=== PATIENT | male | born 1955 | race Caucasian/White ===

== ENCOUNTER 2017-06-30 12:31 | Emergency (ER) | payer MEDICARE, OTHER ==
[~2017-06-30] VITALS: Ht 190.5 cm; Wt 125.0 kg
[2017-06-30] MEDS ORDERED: CLAR10CA3 PO (12:52)
[2017-06-30] MEDS ORDERED: AMBI10TA PO (12:54)
[2017-06-30] MEDS ORDERED: ALBU17IN2 INH (12:54)
[2017-06-30 13:54] LABS: INR 0.95
[2017-06-30 13:57] LABS: BASO # 0.1 K/mm3 (0.0-0.2); BASO % 1.3 % (0.0-1.0); EOS % 0.4 % (0.0-3.0); LARGE UNSTAINED CELL # 0.5 K/mm3 (0.0-0.4); LARGE UNSTAINED CELL % 6.6 % (0.0-4.0); LYMPH # 2.8 K/mm3 (1.5-4.5); LYMPH % 31.3 % (24.0-44.0); MEAN CORPUSCULAR HEMOGLOBIN 29.2 pg (27.0-33.0); MEAN CORPUSCULAR HGB CONC 34.1 g/dl (32.0-36.5); MEAN CORPUSCULAR VOLUME 85.7 fl (80.0-96.0); MONO # 0.6 K/mm3 (0.0-0.8); MONO % 8.4 % (0.0-5.0); NEUTROPHILS # 3.8 K/mm3 (1.8-7.7); NEUTROPHILS % 52.1 % (36.0-66.0); WHITE BLOOD COUNT 7.3 K/mm3 (4.0-10.0)
[2017-06-30 14:15] LABS: MAGNESIUM LEVEL 2.4 MG/DL (1.8-2.4)
[2017-06-30 14:19] LABS: ALBUMIN 3.7 GM/DL (3.2-5.2); ALKALINE PHOSPHATASE 105 U/L (45-117); ALT/SGPT 90 U/L (12-78); ANION GAP 7 MEQ/L (8-16); AST/SGOT 49 U/L (15-37); BILIRUBIN,DIRECT 0.3 MG/DL (0.0-0.2); BILIRUBIN,TOTAL 0.9 MG/DL (0.2-1.0); BLOOD UREA NITROGEN 10 MG/DL (7-18); CALCIUM LEVEL 9.4 MG/DL (8.5-10.1); CARBON DIOXIDE LEVEL 29 MEQ/L (21-32); CHLORIDE LEVEL 106 MEQ/L (98-107); CREATININE FOR GFR 1.15 MG/DL (0.70-1.30); FREE T4 1.21 NG/DL (0.76-1.46); GLOMERULAR FILTRATION RATE > 60.0 (>56); GLUCOSE, FASTING 101 MG/DL (70-105); POTASSIUM SERUM 4.7 MEQ/L (3.5-5.1); SODIUM LEVEL 142 MEQ/L (136-145); TOTAL PROTEIN 7.4 GM/DL (6.4-8.2)
[2017-06-30] MEDS ORDERED: ACETAMINOPHEN 325 MG TAB As Ordered ONE (14:29)
[2017-06-30] MEDS ORDERED: ACETAMINOPHEN TAB 650MG DOSE (2X325MG) PO ONE (14:30)
[2017-06-30 14:47] LABS: PLATELET COUNT, AUTOMATED 82 k/mm3 (150-450)
--- NOTE | 2017-06-30 14:48 | REP ---
Chest one-view HISTORY: Palpitations Comparison: 12/24/2013 The lungs are clear. The heart is normal in size. The pulmonary vasculature is normal in appearance. Impression: No acute disease. Signed by Francisco Javier Chahal MD 06/30/2017 02:40 P
[2017-06-30] MEDS ORDERED: ISOVUE-370 76% 100ML VIAL (Q9967) As Ordered ONE (15:30)
--- NOTE | 2017-06-30 16:10 | REP ---
CT of the chest with IV contrast, pulmonary CT angiography: Opacification of the pulmonary arteries is suboptimal. No large emboli are identified in the pulmonary trunk or central pulmonary arteries. No emboli are identified in the lobe or segment branches. There are no infiltrates or effusions. There is dependent atelectasis. There are no masses. The thoracic aorta is unremarkable. Cardiac size is normal. There is no pericardial effusion. The visualized upper abdominal contents are unremarkable except for hepato steatosis and a right renal upper pole cyst. Impression: The pulmonary arteries are suboptimally opacified. No pulmonary emboli are identified. There is dependent atelectasis. Otherwise, essentially negative CT study of the chest. Signed by Roman Mancia MD 06/30/2017 04:02 P
[2017-06-30 16:47] VITALS: BP 171/90
--- NOTE | 2017-07-01 20:10 | ECGEPIP ---
Stationary ECG Study [facility] - ED Test Date: 2017-06-30 Pat Name: YESSICA GODOY Department: Room: - Gender: M Site Manager: MARCIANO : 1955 Requested By: ASIM Beavers Order Number: [id number] Reading MD: Hector Smallwood Measurements Intervals [place] Rate: 93 P: 51 [place]: 172 QRS: 1 QRSD: 99 T: 62 QT: 363 QTc: 453 Interpretive Statements SINUS RHYTHM WITH FREQUENT VENTRICULAR PREMATURE COMPLEXES POSSIBLE LEFT ATRIAL ENLARGEMENT ABNORMAL RHYTHM ECG CW 12/24/13 RATE INCREASED INCREASED ECTOPY Electronically Signed On 07-01-2017 20:09:49 EDT by Hector Smallwood
== END 2017-06-30 16:53 | disposition home or self-care (01) ==
LOC: M ED 12:31
DX: J32.9 Chronic sinusitis, unspecified (principal); I49.3 Ventricular premature depolarization; R94.31 Abnormal electrocardiogram [ECG] [EKG]; G47.30 Sleep apnea, unspecified; K22.70 Barrett's esophagus without dysplasia; F17.200 Nicotine dependence, unspecified, uncomplicated; Z79.899 Other long term (current) drug therapy
CPT/HCPCS: 71010; 71275; 80048; 80076; 82550; 82553; 83735; 83880; 84100; 84439; 84443; 84484; 85025; 85610; 85730; 93005; 93041; 94760; 99285; Q9967

== ENCOUNTER → 2018-10-08 | Outpatient (CLI) | payer OTHER | LOC: M CARPUL 11:25 | DX: R94.31 Abnormal electrocardiogram [ECG] [EKG] (principal) | CPT/HCPCS: 93306 ==

== ENCOUNTER 2019-04-23 19:38 | Inpatient (IN) | payer OTHER ==
[~2019-04-23] VITALS: Ht 190.5 cm; Wt 121.5 kg
[~2019-04-23 19:38] MED LIST: ALBU17IN2 INH; AMBI10TA PO; CLAR10CA3 PO
[2019-04-23] MEDS ORDERED: NS 1,000 ML IV ONE (20:30)
[2019-04-23 20:33] LABS: BASO # 0.1 10^3/uL (0.0-0.2); BASO % 0.8 % (0.0-1.0); EOS # 0.1 10^3/uL (0.0-0.50); EOS % 0.8 % (0.0-3.0); HEMATOCRIT 49.7 % (42.0-52.0); HEMOGLOBIN 16.5 g/dl (13.5-17.5); LYMPH # 2.4 10^3/uL (1.5-4.5); LYMPH % 21.8 % (24.0-44.0); MEAN CORPUSCULAR HEMOGLOBIN 29.6 pg (27.0-33.0); MEAN CORPUSCULAR HGB CONC 33.2 g/dl (32.0-36.5); MEAN CORPUSCULAR VOLUME 89.2 fl (80.0-96.0); MONO # 0.7 10^3/uL (0.0-0.8); MONO % 6.4 % (0.0-5.0); NEUTROPHILS # 7.5 10^3/uL (1.8-7.7); NEUTROPHILS % 69.7 % (36.0-66.0); PLATELET COUNT, AUTOMATED 168 10^3/uL (150-450); RED BLOOD COUNT 5.57 10^6/uL (4.30-6.10); WHITE BLOOD COUNT 10.8 10^3/uL (4.0-10.0)
[2019-04-23 20:47] LABS: CPK CREATINE PHOSPHOKINASE 302 U/L (39-308); ETHYL ALCOHOL (ETHANOL) < 0.003 % (0.000-0.010); MB/CK RELATIVE INDEX 0.76 (< OR =4); TROPONIN I 0.03 NG/ML (< 0.10)
[2019-04-23] MEDS ORDERED: ISOVUE-370 76% 100ML VIAL (Q9967) As Ordered ONE (20:47)
--- NOTE | 2019-04-23 21:03 | REP ---
Clinical: Syncope/near syncope . Comparison: 06/30/2017 . Findings: The mediastinum and cardiac silhouette are stable and within normal limits for portable technique. The lung hyde are clear without acute consolidation, effusion, or pneumothorax. Skeletal structures are intact. Impression: No acute cardiopulmonary process appreciated. Electronically Signed by Norberto Dickinson MD 04/23/2019 08:53 P
--- NOTE | 2019-04-23 21:04 | REP ---
Clinical: Syncope . Findings: Age-related atrophy and microvascular ischemic changes are appreciated. The ventricles and sulci are symmetric. Cervantes-white differentiation is maintained. There is no evidence for acute intracranial hemorrhage, mass/mass effect, pathology or infarction. No extra-axial fluid collection. Calvarium is intact. Paranasal sinuses and mastoid air cells are clear. Impression: Age related atrophy and microvascular ischemic changes. No acute intracranial hemorrhage, infarction, or mass/mass effect. Electronically Signed by Norberto Dickinson MD 04/23/2019 08:55 P
--- NOTE | 2019-04-23 21:13 | REP ---
Clinical: Syncope. Chest pain. Comparison: 06/30/2017. Technique: Axial contrast enhanced images from the thoracic inlet to the upper abdomen using 100 ml Isovue 370 intravenous contrast material with coronal and sagittal re-formations. Findings: Satisfactory enhancement of the pulmonary vasculature is achieved and no filling defects are identified to suggest pulmonary embolus. Thoracic aorta is normal caliber without aneurysm or dissection. Heart and pericardium are normal. Bilateral lung hyde demonstrate mild posterobasilar atelectasis/dependent changes without acute consolidation. No pleural effusion/reaction. No pneumothorax. No adenopathy. Impression: No evidence for pulmonary embolus. Very mild posterior basilar atelectasis/dependent changes. Normal thoracic aorta. No focal consolidation or effusion. Electronically Signed by Norberto Dickinson MD 04/23/2019 09:03 P
--- NOTE | 2019-04-23 21:18 | REP ---
Clinical: Syncope. Abdominal and back pain. Technique: Axial contrast enhanced images from the lung bases to the pubic symphysis using 100 ml Isovue 370 intravenous contrast material with coronal and sagittal re-formations. Comparison: None. Findings: Lung bases demonstrate mild dependent atelectasis. Visualized heart and pericardium appear normal. Liver, spleen, pancreas, bilateral adrenal glands and kidneys are essentially normal. Right kidney includes 7 mm medial cortical cyst and the left kidney includes 3.2 cm exophytic inferior pole complex cyst. No hydronephrosis or nephroureterolithiasis. Evidence of prior cholecystectomy. The enteric system is without obstruction or acute inflammatory process. Normal terminal ileum and appendix are identified in the right lower quadrant. Pelvis demonstrates prominent prostate gland measuring 5.3 cm maximal diameter with mass effect on the base of the bladder. No pelvic fluid. No ascites. No free air. No adenopathy. Abdominal aorta demonstrates mild atherosclerotic changes without aneurysm or dissection. Musculoskeletal structures demonstrate degenerative changes to the lumbosacral spine including chronic L5 spondylolysis with grade 1 spondylolisthesis and disc space obliteration at L5-S1. Impression: 1. No acute abdominopelvic pathology appreciated. 2. Complex left renal cyst may warrant followup ultrasound as outpatient. 3. Enlarged prostate gland with mass effect on the base of the bladder. 4. Chronic degenerative changes of the lumbosacral spine including L5 spondylolysis and chronic grade 1 spondylolisthesis. 5. No ascites, focal inflammatory stranding, or adenopathy. Electronically Signed by Norberto Dickinson MD 04/23/2019 09:09 P
[2019-04-23 22:47] LABS: AMPHETAMINES LEVEL URINE NEGATIVE (NEGATIVE); BARBITURATES URINE NEGATIVE (NEGATIVE); BENZODIAZEPINES URINE NEGATIVE (NEGATIVE); CANNABINOIDS URINE NEGATIVE (NEGATIVE); COCAINE METABOLITE URINE NEGATIVE (NEGATIVE); METHADONE URINE NEGATIVE (NEGATIVE); OPIATES URINE NEGATIVE (NEGATIVE); PHENCYCLIDINE URINE NEGATIVE (NEGATIVE)
[2019-04-23] MEDS ORDERED: MAALOX 30 ML SUSP *UDC PO PRN (23:15)
[2019-04-23] MEDS ORDERED: ACETAMINOPHEN TAB 650MG DOSE (2X325MG) PO PRN (23:15)
[2019-04-23] MEDS ORDERED: MOM 30ML SUSPENSION UDC PO PRN (23:15)
[2019-04-23] MEDS ORDERED: METOPROLOL TART 12.5 MG PER 1/2 TAB PO ONE (23:30)
--- NOTE | 2019-04-23 23:51 | HPEPDOC ---
General Date of Admission Apr 23, 2019 at 23:11 Date of Service: Apr 23, 2019 Chief Complaint The patient is a 63-year-old male admitted with a reason for visit of Bigeminy; Syncope. Source: Patient, Family, RN/MD, Old records History of Present Illness Mr. Henning is a 63 years old man with hx/o Sleep apnea and mild LV systolic dysfunction. He was brought to the ER for evaluation after an episode of witnessed syncope. Pt reports chronic, daily tinnitus due to left ear problem for years; this was worse since waking up this morning. The tinnitus usually gets better or resolves after sitting up or standing. 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 The reports no seizure like activity. Syncope lasted about two minutes. He had urinary incontinence during the event. Post-syncope pt had no confusion or any other complaints. Pt denies chest pain, SOB, palpitation, or headache. Pt denies prior hx/o syncope or seizure. Pt was seen in this ER two years ago for sinus pain and abnormal EKG showing bigeminy. Today EKG and equipment monitor phototypesetting shows continuous bigeminy, HR between 70 and 80/min. BP is moderately elevated, SBP 170-180. Pt had Echo six months ago: mildly dilated LV, mild LVH, EF 45%. Pt has not seen a ski patroller. He is not on a BB or CCB. Pt has no hx of CAD. I talked to ski patroller Dr. Rome; he recommends: Echo in the morning, equipment monitor phototypesetting 48hrs, low dose BB. He will see the pt tomorrow. Basic labs are normal. CXR, Head CT and CTA chest shows no acute findings. ABD CT: 1. No acute abdominopelvic pathology appreciated. 2. Complex left renal cyst may warrant followup ultrasound as outpatient. 3. Enlarged prostate gland with mass effect on the base of the bladder. 4. Chronic degenerative changes of the lumbosacral spine including L5 spondylolysis and chronic grade 1 spondylolisthesis. Home Medications Scheduled Loratadine (Claritin) 10 Mg Cap, 10 MG PO QHS, (Reported) Zolpidem Tartrate (Ambien) 10 Mg Tab, 10 MG PO QHS, (Reported) Allergies Coded Allergies: No Known Allergies (Unverified , 06/30/17) Past Medical History Medical History Mild LV systolic dysfunction EF 45%, Mild dilated LV, mild LVH, Chronic Bigeminy, Sleep apnea, Chronic tinnitus, IBS, Sabino's Esophagus Surgical History Cholecystectomy, Right Wrist surgery Family History Significant Family History: No pertinent family hx Social History * Smoker: current smoker Alcohol: Denies Drugs: denies A-FIB/CHADSVASC A-FIB History Current/History of A-Fib/PAF?: No Review of Systems Constitutional: Denies: Chills, Fever Eyes: Denies: Pain, Vision change ENT: Reports: Other Symptoms (tinnitus left ear); Denies: Head Aches Skin: Denies: Rash, Lesions Pulmonary: Denies: Dyspnea, Cough Cardiovascular: Denies: Chest Pain, Palpitations, Edema Gastrointestinal: Denies: Nausea, Vomiting, Abdominal Pain, Diarrhea, Constipation Genitourinary: Denies: Dysuria, Frequency Musculoskeletal: Denies: Neck Pain, Back Pain Neurological: Denies: Weakness, Numbness, Change in speech, Confusion Psych: Reports: Mood Normal; Denies: Anxiety, Depression Physical Examination General Exam: Positive: Alert, Cooperative, No Acute Distress Eye Exam: Positive: PERRLA ENT Exam: Positive: Atraumatic Neck Exam: Positive: Supple; Negative: JVD Chest Exam: Positive: Clear to auscultation, Normal air movement Heart Exam: Positive: Rate Normal, Regular Rhythm (with bigeminy beats) Abdomen Exam: Positive: Normal bowel sounds, Soft; Negative: Tenderness Extremity Exam: Positive: Normal pulses; Negative: Edema Skin Exam: Positive: Nl turgor and temperature; Negative: Rash, Breakdown Neuro Exam: Positive: Normal Speech, Normal Tone Psych Exam: Positive: Mental status NL, Mood NL; Negative: Anxiety Vital Signs Vital Signs Date Time Temp Pulse Resp B/P (MAP) Pulse Ox O2 Delivery O2 Flow Rate FiO2 04/23/19 23:01 152/74 (100) 04/23/19 22:53 97.9 81 20 100 Nasal Cannula 2.0 Laboratory Data Labs 24H Laboratory Tests 2 04/23/19 19:59: Immature Granulocyte % (Auto) 0.5, White Blood Count 10.8H, Red Blood Count 5.57, Hemoglobin 16.5, Hematocrit 49.7, Mean Corpuscular Volume 89.2, Mean Corpuscular Hemoglobin 29.6, Mean Corpuscular Hemoglobin Concent 33.2, Red Cell Distribution Width 14.0, Platelet Count 168, Neutrophils (%) (Auto) 69.7H, Lymphocytes (%) (Auto) 21.8L, Monocytes (%) (Auto) 6.4H, Eosinophils (%) (Auto) 0.8, Basophils (%) (Auto) 0.8, Neutrophils # (Auto) 7.5, Lymphocytes # (Auto) 2.4, Monocytes # (Auto) 0.7, Eosinophils # (Auto) 0.1, Basophils # (Auto) 0.1, Nucleated Red Blood Cells % (auto) 0.0, Total Creatine Kinase 302, Creatine Kinase MB 2.0, Creatine Kinase MB Relative Index 0.76, Troponin I 0.03, Thyroid Stimulating Hormone (TSH) 1.970, Ethyl Alcohol Level < 0.003 04/23/19 20:34: POC Glucose (Misc Panel) 96, POC Sodium (Misc Panel) 144, POC Potassium (Misc Panel) 4.4, POC Chloride (Misc Panel) 108, POC Total CO2 (Misc Panel) 27.0, POC Blood Urea Nitrogen (Misc Panel 14, POC Ionized Calcium (Misc Panel) 4.7, POC Creatinine (Misc Panel) 1.2, POC Hematocrit (Misc Panel) 51.0 04/23/19 22:22: Urine Color YELLOW, Urine Appearance CLEAR, Urine pH 6.0, Urine Specific [place] 1.032, Urine Protein 1+H, Urine Glucose (UA) NEGATIVE, Urine Ketones NEGATIVE, Urine Blood NEGATIVE, Urine Nitrite NEGATIVE, Urine Bilirubin NEGATIVE, Urine Urobilinogen 0.2, Urine Leukocyte Esterase NEGATIVE, Urine WBC (Auto) 1, Urine RBC (Auto) 1, Urine Hyaline Casts (Auto) 0, Urine Bacteria (Auto) NEGATIVE, Urine Squamous Epithelial Cells 0, Urine Sperm (Auto) , Urine Amphetamines Screen NEGATIVE, Urine Benzodiazepines Screen NEGATIVE, Urine Opiates Screen NEGATIVE, Urine Methadone Screen NEGATIVE, Urine Barbiturates Screen NEGATIVE, Urine Phencyclidine Screen NEGATIVE, Urine Cocaine Metabolite Screen NEGATIVE, Urine Cannabinoids Screen NEGATIVE CBC/BMP Laboratory Tests 04/23/19 19:59 Red Blood Count 5.57, Mean Corpuscular Volume 89.2, Mean Corpuscular Hemoglobin 29.6, Mean Corpuscular Hemoglobin Concent 33.2, Red Cell Distribution Width 14.0, Neutrophils (%) (Auto) 69.7 H, Lymphocytes (%) (Auto) 21.8 L, Monocytes (%) (Auto) 6.4 H, Eosinophils (%) (Auto) 0.8, Basophils (%) (Auto) 0.8, Neutrophils # (Auto) 7.5, Lymphocytes # (Auto) 2.4, Monocytes # (Auto) 0.7, Eosinophils # (Auto) 0.1, Basophils # (Auto) 0.1 Assessment/Plan Syncope, Chronic Bigeminy, Mild LV Systolic Dysfunction, with no clinical signs of heart failure - Admit to inpatient; cardiac monitoring - Cardiology consult - Lopressor 12.5 mg po BID - Repeat Troponin; BNP - Echo in the morning - If tachyarrhythmia or change in Echo findings, may need EP study and ablation EH - CPAP at night Plan / VTE VTE Prophylaxis Ordered?: Yes Plan Anticipated Discharge: Home ANJUM SCRUGGS MD Apr 23, 2019 23:51
[2019-04-24] VITALS (27 sets, daily range): BP systolic 134–170; BP diastolic 77–92; O2SAT 94–99
[2019-04-24 00:36] LABS: TROPONIN I 0.08 NG/ML (< 0.10)
[2019-04-24] MEDS: LORATADINE 10 MG TAB PO SCH ×2 (01:49→20:44)
[2019-04-24] MEDS: HEPARIN SOD (PORCINE) 5000 UNITS/ML VIAL SC SCH ×3 (01:49→20:45)
[2019-04-24 05:13] LABS: HEMATOCRIT 48.6 % (42.0-52.0); MEAN CORPUSCULAR HEMOGLOBIN 29.5 pg (27.0-33.0); MEAN CORPUSCULAR HGB CONC 32.9 g/dl (32.0-36.5); MEAN CORPUSCULAR VOLUME 89.7 fl (80.0-96.0); PLATELET COUNT, AUTOMATED 156 10^3/uL (150-450); RED BLOOD COUNT 5.42 10^6/uL (4.30-6.10); WHITE BLOOD COUNT 9.1 10^3/uL (4.0-10.0)
[2019-04-24 05:22] LABS: INR 1.04; PROTHROMBIN TIME 13.7 SECONDS (12.1-14.4)
[2019-04-24 05:46] LABS: ALBUMIN 3.3 GM/DL (3.2-5.2); ALT/SGPT 86 U/L (12-78); BLOOD UREA NITROGEN 13 MG/DL (7-18); CALCIUM LEVEL 8.7 MG/DL (8.8-10.2); CARBON DIOXIDE LEVEL 27 MEQ/L (21-32); CHLORIDE LEVEL 112 MEQ/L (98-107); CREATININE FOR GFR 1.17 MG/DL (0.70-1.30); GLOMERULAR FILTRATION RATE > 60.0 (>49); GLUCOSE, FASTING 107 MG/DL (70-100); MAGNESIUM LEVEL 2.4 MG/DL (1.8-2.4); POTASSIUM SERUM 4.1 MEQ/L (3.5-5.1); SODIUM LEVEL 145 MEQ/L (136-145); TOTAL PROTEIN 6.5 GM/DL (6.4-8.2)
--- NOTE | 2019-04-24 06:37 | ECGEPIP ---
[facility] - ED Test Date: 2019-04-23 Pat Name: YESSICA GODOY Department: Room: [place] [address] Gender: Male Appliquer: MIKI : 1955 Requested By: MERE Sawant Order Number: [id number] Reading MD: Hector Smallwood Measurements Intervals [place] Rate: 86 P: 50 [place]: 183 QRS: 3 QRSD: 101 T: 78 QT: 376 QTc: 452 Interpretive Statements SINUS RHYTHM WITH FREQUENT VENTRICULAR PREMATURE COMPLEXES IN A BIGEMINAL PATTERN POSSIBLE LEFT ATRIAL ENLARGEMENT LEFT VENTRICULAR HYPERTROPHY AND ST-T CHANGE BORDERLINE PROLONGED QTC NONSPECIFIC ST T WAVE CHANGES CW 06/30/17 RATE DECREASED Electronically Signed on 04-24-2019 6:36:52 EDT by Hector Smallwood
[2019-04-24] MEDS: METOPROLOL TART 12.5 MG PER 1/2 TAB PO SCH ×2 (08:32→20:44)
[2019-04-24] MEDS ORDERED: LOSARTAN 50 MG TAB PO SCH (09:00)
--- NOTE | 2019-04-24 09:22 | IPNPDOC ---
Subjective Date Seen The patient was seen on 04/24/19. Subjective Chief Complaint/HPI Patient was to go home. He is awaiting echocardiogram and cardiology consultation General: Denies: ROS Unobtainable, Chills, Night Sweats, Fatigue, Malaise, Normal Appetite, Other Symptoms Constitutional: Denies: Chills, Fever, Malaise, Night Sweats, Weakness, Fatigue, Weight Loss, Lethargy, Other Eyes: Denies: Pain, Vision change, Conjunctivae inflammation, Eyelid inflammation, Redness, Other ENT: Denies: Head Aches, Ear Pain, Dysphagia, Sinus Congestion, Post Nasal Drip, Sore Throat, Epistaxis, Other Symptoms Skin: Denies: Rash, Lesions, Jaundice, Bruising, Itching, Dry, Breakdown, Nail Changes, Other Pulmonary: Denies: Dyspnea, Cough, Pleuritic Chest Pain, Other Symptoms Cardiovascular: Denies: Chest Pain, Palpitations, Orthopnea, Paroxysmal Noc. Dyspnea, Edema, Lt Headedness, Other Symptoms Gastrointestinal: Denies: Nausea, Vomiting, Abdominal Pain, Diarrhea, Constipation, Melena, Hematochezia, Other Symptoms Hematologic: Denies: Bruising, Bleeding Excessively, Petecchia, Purpura, Enlarged Lymph Nodes, Other Hematologic Endocrine: Denies: Polydipsia, Polyphagia, Polyuria, Heat Intolerance, Cold Intolerance, Other Endocrine Sx Musculoskeletal: Denies: Neck Pain, Back Pain, Shoulder Pain, Arm Pain, Hand Pain, Leg Pain, Foot Pain, Joint Pain, Muscle Pain, Spasms, Other Symptoms Neurological: Denies: Weakness, Numbness, Incoordination, Change in speech, Confusion, Seizures, Other Symptoms Psych: Denies: Mood Normal, Anxiety, Depression, Memory Issues, Thoughts of Self Harm, Anger, Thoughts of Harming Other, Other Psych Objective Physical Examination General Exam: Positive: Alert, Cooperative, No Acute Distress Neck Exam: Positive: Supple Chest Exam: Positive: Clear to auscultation, Normal air movement Heart Exam: Positive: Rate Normal, Regular Rhythm (with bigeminy beats), Normal S1, Normal S2 Telemetry: Positive: No significant arrhythmia Abdomen Exam: Positive: Normal bowel sounds, Soft Extremity Exam: Positive: Normal pulses Psych Exam: Positive: Mental status NL, Mood NL Assessment /Plan Problems (1) Syncope Status: Acute Problem Text: Syncope, etiology is unknown, could be secondary vestibulitis as he does have an area issues with constant tinnitus. Or could be vasovagal. 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 Patient has a history of noncompliance with his medical exam and follow-ups and taking his medication. . He is also active smoker. Repeat echocardiogram pending Cardiac because of her Dr. Rome pending Continue small dose beta eduin Continue all present medications Continue telemetry monitoring Patient probably will be discharged home once cleared by cardiology Extensive counseling was done regarding compliance with medical follow-ups medications and recommendations (2) Bigeminy Status: Acute Problem Text: As above Plan/VTE VTE Prophylaxis Ordered?: Yes Plan Anticipated Discharge: Home VS, I&O, 24H, [facility] Vital Signs/I&O Vital Signs Date Time Temp Pulse Resp B/P (MAP) Pulse Ox O2 Delivery O2 Flow Rate FiO2 04/24/19 08:32 145/82 04/24/19 08:00 1.0 04/24/19 08:00 98.2 77 20 98 04/24/19 06:00 Room Air I&O- Last 24 Hours up to 6 AM 04/24/19 06:00 Intake Total 900 ml Output Total 0 ml Balance 900 ml Laboratory Data 24H LABS Laboratory Tests 2 04/23/19 19:59: Immature Granulocyte % (Auto) 0.5, White Blood Count 10.8H, Red Blood Count 5.57, Hemoglobin 16.5, Hematocrit 49.7, Mean Corpuscular Volume 89.2, Mean Corpuscular Hemoglobin 29.6, Mean Corpuscular Hemoglobin Concent 33.2, Red Cell Distribution Width 14.0, Platelet Count 168, Neutrophils (%) (Auto) 69.7H, Lymphocytes (%) (Auto) 21.8L, Monocytes (%) (Auto) 6.4H, Eosinophils (%) (Auto) 0.8, Basophils (%) (Auto) 0.8, Neutrophils # (Auto) 7.5, Lymphocytes # (Auto) 2.4, Monocytes # (Auto) 0.7, Eosinophils # (Auto) 0.1, Basophils # (Auto) 0.1, Nucleated Red Blood Cells % (auto) 0.0, Total Creatine Kinase 302, Creatine Kinase MB 2.0, Creatine Kinase MB Relative Index 0.76, Troponin I 0.03, Thyroid Stimulating Hormone (TSH) 1.970, Ethyl Alcohol Level < 0.003 04/23/19 20:34: POC Glucose (Misc Panel) 96, POC Sodium (Misc Panel) 144, POC Potassium (Misc Panel) 4.4, POC Chloride (Misc Panel) 108, POC Total CO2 (Misc Panel) 27.0, POC Blood Urea Nitrogen (Misc Panel 14, POC Ionized Calcium (Misc Panel) 4.7, POC C reatinine (Misc Panel) 1.2, POC Hematocrit (Misc Panel) 51.0 04/23/19 22:22: Urine Color YELLOW, Urine Appearance CLEAR, Urine pH 6.0, Urine Specific [place] 1.032, Urine Protein 1+H, Urine Glucose (UA) NEGATIVE, Urine Ketones NEGATIVE, Urine Blood NEGATIVE, Urine Nitrite NEGATIVE, Urine Bilirubin NEGATIVE, Urine Urobilinogen 0.2, Urine Leukocyte Esterase NEGATIVE, Urine WBC (Auto) 1, Urine RBC (Auto) 1, Urine Hyaline Casts (Auto) 0, Urine Bacteria (Auto) NEGATIVE, Urine Squamous Epithelial Cells 0, Urine Sperm (Auto) , Urine Amphetamines Screen NEGATIVE, Urine Benzodiazepines Screen NEGATIVE, Urine Opiates Screen NEGATIVE, Urine Methadone Screen NEGATIVE, Urine Barbiturates Screen NEGATIVE, Urine Phencyclidine Screen NEGATIVE, Urine Cocaine Metabolite Screen NEGATIVE, Urine Cannabinoids Screen NEGATIVE 04/23/19 23:56: Troponin I 0.08#, BU-Zea-[id number]-Type Natriuretic Peptide 1352H 04/24/19 04:53: Nucleated Red Blood Cells % (auto) 0.0, Prothrombin Time 13.7, Prothromb Time International Ratio 1.04, Anion Gap 6L, Glomerular Filtration Rate > 60.0, Blood Urea Nitrogen 13, Creatinine 1.17, Sodium Level 145, Potassium Level 4.1, Ch loride Level 112H, Carbon Dioxide Level 27, Calcium Level 8.7L, Aspartate Amino Transf (AST/SGOT) 49H, Alanine Aminotransferase (ALT/SGPT) 86H, Alkaline Phosphatase 80, Total Bilirubin 1.0, Total Protein 6.5, Albumin 3.3, Magnesium Level 2.4, Troponin I 0.09, Albumin/Globulin Ratio 1.03 CBC/BMP Laboratory Tests 04/23/19 19:59 Red Blood Count 5.57, Mean Corpuscular Volume 89.2, Mean Corpuscular Hemoglobin 29.6, Mean Corpuscular Hemoglobin Concent 33.2, Red Cell Distribution Width 14.0, Neutrophils (%) (Auto) 69.7 H, Lymphocytes (%) (Auto) 21.8 L, Monocytes (%) (Auto) 6.4 H, Eosinophils (%) (Auto) 0.8, Basophils (%) (Auto) 0.8, Neutrophils # (Auto) 7.5, Lymphocytes # (Auto) 2.4, Monocytes # (Auto) 0.7, Eosinophils # (Auto) 0.1, Basophils # (Auto) 0.1 04/24/19 04:53 Red Blood Count 5.42, Mean Corpuscular Volume 89.7, Mean Corpuscular Hemoglobin 29.5, Mean Corpuscular Hemoglobin Concent 32.9, Red Cell Distribution Width 14.2, Calcium Level 8.7 L, Aspartate Amino Transf (AST/SGOT) 49 H, Alanine Aminotransferase (ALT/SGPT) 86 H, Alkaline Phosphatase 80, Total Bilirubin 1.0, Total Protein 6.5, Albumin 3.3 DALY SAMSON MD Apr 24, 2019 09:21
[2019-04-24] MEDS ORDERED: SLF 3 ML SYR IV PRN (09:30)
--- NOTE | 2019-04-24 12:55 | CR ---
DATE OF CONSULTATION: 04/24/2019 REFERRING PHYSICIAN: Dr. Edgard Canada INDICATION: Syncope. HISTORY OF PRESENT ILLNESS: Mr. Henning is not known to me from before. He is a very pleasant 63-year-old who came to hospital yesterday because he suffered a syncopal event at home. This is the first syncope he ever had. He reports that he woke up that morning with tinnitus that was stronger than usual. Nevertheless, even though he did not feel well, he went outside of the house and was doing some light chores around his boat. At one point, he was leaning forward and the sensation of tinnitus intensified, spread to his right ear where it normally is not present, and he said that within a second or two, he lost consciousness. His significant other witnessed the event. He apparently was unconscious for approximately 2 minutes. There was no seizure-like activity, but he did have urinary incontinence. After arrival of emergency certified medical dosimetrist (EMT), he was already conscious, he had frequent premature ventricular contractions (PVCs), and he was brought to hospital for further evaluation. While in the emergency room, he was noted to have very frequent ectopy and decision was made to bring him for further monitoring. The patient denies any history of coronary artery disease or congestive heart failure, but in September 2018, he had an echocardiogram in this facility that revealed mildly dilated left ventricle with approximately [id number] left ventricular systolic dysfunction. He is followed in [place] and was prescribed apparently two cardiac pills, which he was taking for a short period of time but then he stopped. He did not see any obvious benefit from the medications, and he admits that his medication compliance in this regard has not been good. At his baseline, he is a fairly active man, but he has noticed that in the last 6-12 months there has been progressive decline of exertional tolerance. He gets very easily short of breath, even worse if he is leaning forward. He has not noted any anginal symptoms. There were no sensations of palpitations, and there have not been any prior episodes of syncope. PAST MEDICAL HISTORY: 1. Chronic tinnitus affecting mostly left ear. 2. Chronic infection of both ears; he reports numerous surgeries and tympanoplasties. 3. Rosario's esophagus. 4. Severe sleep apnea, generally intolerant of continuous positive airway pressure (CPAP). 5. Echocardiogram September 2018 revealed left ventricular ejection fraction (LVEF) 45%, dilated LV, no significant valvular disease. 6. Chronic neck pain with apparently compression of nerves. SURGICAL HISTORY: Cholecystectomy, right wrist surgery and numerous ear surgeries. FAMILY HISTORY: The patient's father of myocardial infarction in his 60s. His uncle (father's brother) also of heart attack. SOCIAL HISTORY: The patient is retired from after many years. He is currently smoking about a pack a day. He denies any significant alcohol use but said that he used to drink quite heavily many years ago but not for a long period of time. There is no significant drug use. He lives with his significant other of many years. OUTPATIENT MEDICATIONS: Loratadine 10 mg a day and Ambien 10 mg at bedtime. ALLERGIES: No known medication allergies. PHYSICAL EXAMINATION: Mr. Henning is a 63-year-old man who appears approximately his age, appeared of very strong build, pleasant, alert and oriented and appropriate. Blood pressure 145/82, heart rate has been mostly in 70s, most of the time it is sinus rhythm with frequent ventricular ectopy, at times in bigeminal pattern. He has occasional couplets but reviewing telemetry, I have not seen any ventricular tachycardia. Saturation is 98% on 2 liters of oxygen. His fluid balance yesterday was not well documented. Weight is documented 123 kg. His jugular venous pressure (JVP) is not elevated. I do not appreciate any carotid bruit. Lungs are reasonably clear. No wheezing, rhonchi or crackles are appreciated. Heart: Exam reveals regular rhythm with very frequent ventricular ectopy. I do not appreciate gallop, rub or murmur but with his large size, the physical exam is somewhat limited. Abdomen is obese but soft. No hepatosplenomegaly. Bowel sounds are positive. Extremities are free of edema. Peripheral pulses are palpable on both lower extremities. Skin is intact. Neurologically, he appears intact other than tinnitus, clearly changing position. He has to stabilize himself and hold still for a moment. LABORATORY DATA: He has normal CBC. He has normal basic metabolic panel but for glucose 107. He has elevated LFTs with AST of 49, ALT 86. Three sets of cardiac enzymes have been negative and terminal pro-BNP was 1352, albumin 3.3 and TSH 2.0. His toxicology screen was negative other than trace amount of alcohol. His urine is positive 1+ protein. IMAGING: The imaging of the chest did not reveal any obvious congestive heart failure or cardiomegaly, but it is a portable film. Head CT and CT angiography of the chest also did not reveal any gross abnormalities other than some atrophic changes, probably consistent with his age. An electrocardiogram in the emergency room revealed sinus rhythm with ventricular rate 86 beats per minute with bigeminal PVCs throughout and there were criteria suggestive of left ventricular hypertrophy. ASSESSMENT/PLAN: Mr. Henning is a 63-year-old man who presents with syncopal event. It does not sound like orthostatic or neurocardiogenic syncope, at least not in typical form. He had an echocardiogram 6 months ago that revealed approximately moderate left ventricular systolic dysfunction, and he has very frequent ventricular ectopy but no ventricular tachycardia (VT). At this point, I am quite concerned that he has cardiomyopathy where the PVCs can be either the cause or a consequence and possibility of VT definitely is high on my list in differential diagnosis. He had an echocardiogram that was just completed; I have not had a chance to review it yet. My plan will be to continue monitoring on telemetry for at least additional 24 hours. Provided he has worsening left ventricular systolic dysfunction, my recommendation would be to pursue coronary angiography and electrophysiology consult, depending on results. If his left ventricular systolic function is not worse than it was 6 months ago, and if we do not see ventricular tachycardia on telemetry, then I would recommend to continue medications with essentially beta-blockers and ARBs started, seeming as very appropriate options to be followed by noninvasive evaluation for underlying coronary artery disease, and also some form of longer monitoring. His additional issues need to be addressed as well. He says that he is already scheduled to see pulmonary for retesting for obstructive sleep apnea (EH) and hopefully getting new equipment to treat it. He also is [facility], but he says that his chronic tinnitus and chronic infections of his ears have been plaquing him for decades. He is an active smoker, but he says that he is determined to quit. I will follow the patient with you. RODRIGUEZ
[2019-04-24] MEDS: SLF 3 ML SYR IV SCH ×2 (13:04→20:45)
--- NOTE | 2019-04-24 13:41 | ECHO ---
DATE OF PROCEDURE: 04/24/2019 REFERRING PHYSICIAN: Dr. Edgard Canada INDICATIONS: Syncope, frequent ventricular ectopy. Height 187 cm, weight 122 kg. DIMENSIONS: IVS: 1.1 LV: 6.5 LVPW: 1.2 LA: 5.0 Aorta: 3.5 IVC: 2.5 RV: 3.9 Mitral E wave velocity: 60 A wave: 32 E prime septal: 5.0 E prime lateral: 10.9 FINDINGS: The study is of acceptable technical quality, especially considering patient's body habitus. He was in ventricular bigeminy consistently throughout the study. Left ventricle is severely dilated and globally severely hypokinetic. I estimate overall left ventricular ejection fraction (LVEF) 20-25%, computer-generated ejection fraction (EF) was 22%. This is based on post PVC beat. Right ventricle is also dilated and hypokinetic. Both atria are severely enlarged. Aortic, mitral, tricuspid and pulmonic valves all appear grossly normal. No pericardial effusion is noted. Inferior vena cava is dilated, and there is reduced collapse with respiration indicative of high central venous pressure. Aortic root appears normal. Aortic arch and abdominal aorta were poorly visualized. Doppler interrogation of aortic valve reveals no stenosis or insufficiency. There is mild mitral and trace tricuspid insufficiency. Unfortunately quality of TR jet was not sufficient to adequately estimate pulmonary artery pressure. Pulmonic valve is functionally competent. Evaluation of diastolic function is complicated by frequent ventricular ectopy, but based on post PVC beat, there is grade 2 diastolic dysfunction. CONCLUSIONS: 1. Study is of acceptable technical quality. 2. Dilated globally hypokinetic left ventricle with severe left ventricular systolic dysfunction and probably grade 2 diastolic dysfunction. 3. Dilated hypokinetic right ventricle. 4. Severe biatrial enlargement. 5. No hemodynamically significant valvular disease. 6. High central venous pressure. 7. Unable to estimate pulmonary artery pressure. COMMENT: Subacute bacterial endocarditis (SBE) prophylaxis is not recommended. Study is most consistent with nonischemic cardiomyopathy even though ischemic cardiomyopathy is in differential diagnosis. [facility]
[2019-04-25] VITALS (18 sets, daily range): BP systolic 140–168; BP diastolic 70–100; O2SAT 95–99
[2019-04-25] MEDS: SLF 3 ML SYR IV SCH ×2 (06:01→14:00)
[2019-04-25] MEDS: HEPARIN SOD (PORCINE) 5000 UNITS/ML VIAL SC SCH (08:57)
[2019-04-25] MEDS: METOPROLOL TART 12.5 MG PER 1/2 TAB PO SCH (08:58)
[2019-04-25] MEDS ORDERED: LOSARTAN 50 MG TAB PO SCH (09:00)
[2019-04-25] MEDS ORDERED: ASPIRIN 81 MG ENTERIC TAB PO SCH (09:00)
[2019-04-25] MEDS ORDERED: METOPROLOL SUCC (TopROL XL) 50MG **XL** TAB PO SCH (09:00)
--- NOTE | 2019-04-25 09:07 | IPN ---
DATE: 04/28/2019 Mr. Henning had a relatively uneventful night. He did not sleep much as usual because of his tinnitus, but does not have any chest pain or shortness of breath. Vital signs: Blood pressure 140/776 and he is typically a little more hypertensive than that. Heart rate has been in 60s, 70s, and 80s. He still has a huge amount of ventricular ectopy, but I did not find any ventricular tachycardia on telemetry. Saturation 98-99% on 2 liters of oxygen by nasal cannula. Weight is 121.5 kg. He is alert, oriented and appropriate. Seems little bit nervous about the developments. His jugular venous pulse (JVP) though does not appear high. Lungs are clear. Heart exam reveals regular rhythm with very frequent ectopy, somewhat muffled heart sound corresponding to his size, but no gallop or rub is noted. Abdomen is soft and nontender. Extremities have no edema. Neurologically, he is intact. Laboratory santamaria, he has not had basic metabolic panel drawn this morning. His troponin is 0.09 ASSESSMENT AND PLAN: Mrs. Henning is a 63-year-old man who presented with syncopal event that by description does not sound orthostatic or neurocardiogenic. He was found to have dilated left ventricle with severe left ventricular systolic dysfunction. In this setting, I do not recommend that the patient gets discharged home. He is certainly at high risk of ventricular tachycardia and it is quite conceivable that the event actually was arrhythmic in nature. My recommendation is to pursue coronary angiography and depending on findings, then further medical course can be charted. I believe that he should proceed without being discharged home because he is at high risk of sudden cardiac . I talk to him about it and we got on the phone his sister who is an RN from [place]. Ultimately, we decided to transfer him to [facility] in [place] provided his insurance would approve this. I will wait for approval from the high school social studies teacher and utilization team, but if allowed, I will contact [facility] and will try to arrange for transfer. In the interim, we will advance his medications. I am going to increase the beta-eduin to Toprol XL 50 mg daily and Cozaar 200 mg daily. So far, overall has been able to tolerate the medications.
--- NOTE | 2019-04-25 10:21 | DS.PDOC ---
Discharge Summary General Date of Admission Apr 23, 2019 at 23:11 Date of Discharge April Attending Physician: DALY SAMSON MD Discharge Summary PROCEDURES PERFORMED DURING STAY: None. ADMITTING DIAGNOSES: 1. Syncope. DISCHARGE DIAGNOSES: 1. Syncope, dilated cardiomegaly with to reduce ejection fraction. COMPLICATIONS/CHIEF COMPLAINT: Bigeminy; Syncope. HISTORY OF PRESENT ILLNESS: Mr. Henning is a 63 years old man with hx/o Sleep apnea and mild LV systolic dysfunction. He was brought to the ER for evaluation after an episode of witnessed syncope. Pt reports chronic, daily tinnitus due to left ear problem for years; this was worse since waking up this morning. The tinnitus usually gets better or resolves after sitting up or standing. 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 The reports no seizure like activity. Syncope lasted about two minutes. He had urinary incontinence during the event. Post- syncope pt had no confusion or any other complaints. Pt denies chest pain, SOB, palpitation, or headache. Pt denies prior hx/o syncope or seizure. Pt was seen in this ER two years ago for sinus pain and abnormal EKG showing bigeminy. Today EKG and environmental monitoring specialist shows continuous bigeminy, HR between 70 and 80/min. BP is moderately elevated, SBP 170-180. Pt had Echo six months ago: mildly dilated LV, mild LVH, EF 45%. Pt has not seen a cheese factory worker. He is not on a BB or CCB. Pt has no hx of CAD. I talked to cheese factory worker Dr. Rome; he recommends: Echo in the morning, environmental monitoring specialist 48hrs, low dose BB. He will see the pt tomorrow.. HOSPITAL COURSE: Patient was admitted with the chief complaint of syncope. Patient is a noncompliant to his medication CPAP and is still active smoker. . His echocardiogram was consistent with reduced ejection fraction about 22 with dilated cardiomegaly. Patient was seen and followed up by jocelynn, and because of risk of sudden . He will be transferred to [facility] for possible coronary intervention Beta blockers has been increased and ACEI added as per cardiology and will continue all current medications. Please refer to EMR for further details. DISCHARGE MEDICATIONS: Please see below. ALLERGIES: Please see below. PHYSICAL EXAMINATION ON DISCHARGE: VITAL SIGNS: Please see below. GENERAL: Within normal limits HEENT: PERRLA NECK: Supple CARDIOVASCULAR EXAMINATION: S1, S2, regular RESPIRATORY EXAMINATION: Clear to A&P ABDOMINAL EXAMINATION: Benign EXTREMITIES: No clubbing, cyanosis, edema SKIN: Within normal limits NEUROLOGICAL EXAMINATION: Focal motor sensory deficit PSYCHIATRIC EXAMINATION: Within normal limits LABORATORY DATA: Please see below. IMAGING: ECHO: CONCLUSIONS: 1. Study is of acceptable technical quality. 2. Dilated globally hypokinetic left ventricle with severe left ventricular systolic dysfunction and probably grade 2 diastolic dysfunction. 3. Dilated hypokinetic right ventricle. 4. Severe biatrial enlargement. 5. No hemodynamically significant valvular disease. 6. High central venous pressure. 7. Unable to estimate pulmonary artery pressure. PROGNOSIS: Fair ACTIVITY: As tolerated. DIET: dash DISCHARGE PLAN: Transferred to [facility] for further care DISPOSITION: . to [facility] DISCHARGE INSTRUCTIONS: 1. As above. ITEMS TO FOLLOWUP ON ON OUTPATIENT: 1. As above. DISCHARGE CONDITION: Stable. TIME SPENT ON DISCHARGE: 45 minutes. Vital Signs/I&Os Vital Signs Date Time Temp Pulse Resp B/P (MAP) Pulse Ox O2 Delivery O2 Flow Rate FiO2 04/25/19 09:00 97 Room Air 04/25/19 08:58 168/100 04/25/19 08:58 67 04/25/19 08:00 98.6 18 I&O- Last 24 Hours up to 6 AM 04/25/19 06:00 Intake Total 1680 ml Output Total 0 ml Balance 1680 ml Discharge Medications Scheduled Loratadine (Claritin) 10 Mg Cap, 10 MG PO QHS, (Reported) Zolpidem Tartrate (Ambien) 10 Mg Tab, 10 MG PO QHS, (Reported) Allergies Coded Allergies: No Known Allergies (Unverified , 06/30/17) DALY SAMSON MD Apr 25, 2019 10:21
[2019-04-25] MEDS ORDERED: METO1TAB7 PO (12:45)
[2019-04-25] MEDS ORDERED: ASPI81TAEC PO (12:45)
[2019-04-25] MEDS ORDERED: COZA50TA PO (12:45)
[2019-04-25] MEDS ORDERED: HEPA500011 SC (12:45)
--- NOTE | 2019-04-25 18:38 | ECGEPIP ---
[facility] Test Date: 2019-04-25 Pat Name: YESSICA GODOY Department: Room: J3770-37 Gender: Male Saw Maker: LUIS ANTONIO : 1955 Requested By: Shanti Rome Order Number: [id number] Reading MD: Tung Ware Measurements Intervals [place] Rate: 67 P: 56 ND: 191 QRS: 3 QRSD: 99 T: 76 QT: 386 QTc: 408 Interpretive Statements Ventricular bigeminy Somewhat prominent precordial voltage with lateral strain pattern; consider LVH Slow her rate than 04/23/19. Electronically Signed on 04-25-2019 18:38:01 EDT by Tung Ware
== END 2019-04-25 16:10 | disposition short-term general hospital (02) | DRG 312 ==
LOC: M ED 19:38 → M ED INP 23:11 → M PCU 04-24 00:34
PROVIDERS: ADMIT Internal Medicine; ATTEND Internal Medicine
DX: R55 Syncope and collapse (principal); I42.0 Dilated cardiomyopathy; I49.3 Ventricular premature depolarization; G47.00 Insomnia, unspecified; H93.12 Tinnitus, left ear; K22.70 Barrett's esophagus without dysplasia; M54.2 Cervicalgia

== ENCOUNTER → 2020-12-13 | Outpatient (REF) | payer OTHER ==
[~2020-12-13] MED LIST changes: +ASPI81TAEC PO; +COZA50TA PO; +HEPA500011 SC; +METO1TAB7 PO
== END ==
LOC: M LABSMT 14:10
PROVIDERS: ATTEND Urology
DX: N40.0 Benign prostatic hyperplasia without lower urinary tract symptoms (principal); Z12.5 Encounter for screening for malignant neoplasm of prostate

== ENCOUNTER 2022-10-15 15:30 | Emergency (ER) | payer OTHER ==
[~2022-10-15] VITALS: Ht 190.5 cm; Wt 118.1 kg
[~2022-10-15 15:30] MED LIST changes: +ASPI-569 PO; -ASPI81TAEC PO
[2022-10-15] MEDS ORDERED: ROSU10TA6 PO (15:52)
[2022-10-15] MEDS ORDERED: ZOLP5TAB PO (15:53)
[2022-10-15] MEDS ORDERED: LORA-930 PO (15:53)
[2022-10-15] MEDS ORDERED: AMOX875T2 PO (19:16)
[2022-10-15 19:39] VITALS: BP 160/90
== END 2022-10-15 19:44 | disposition home or self-care (01) ==
LOC: M ED 15:30
DX: H66.91 Otitis media, unspecified, right ear (principal); I10 Essential (primary) hypertension; E78.5 Hyperlipidemia, unspecified; K21.9 Gastro-esophageal reflux disease without esophagitis; K58.9 Irritable bowel syndrome, unspecified; M54.50 Low back pain, unspecified; F17.200 Nicotine dependence, unspecified, uncomplicated; Z79.82 Long term (current) use of aspirin; Z79.811 Long term (current) use of aromatase inhibitors; Z79.899 Other long term (current) drug therapy

== ENCOUNTER 2023-09-19 23:27 | Emergency (ER) | payer OTHER ==
[~2023-09-19] VITALS: Ht 190.5 cm; Wt 116.4 kg
[~2023-09-19 23:27] MED LIST changes: +AMOX875T2 PO; -COZA50TA PO; +LORA-930 PO; +LOSA-528 PO; +ROSU10TA6 PO; +ZOLP5TAB PO
[2023-09-19 23:48] VITALS: TEMP 98.4
[2023-09-20 00:43] LABS: BASO % 0.1 % (0.0-1.0); EOS % 0.4 % (0.0-3.0); HEMATOCRIT 51.8 % (42.0-52.0); HEMOGLOBIN 17.2 g/dl (13.5-17.5); LYMPH # 0.8 10^3/uL (1.5-5.0); LYMPH % 11.2 % (24.0-44.0); MEAN CORPUSCULAR HEMOGLOBIN 27.9 pg (27.0-33.0); MEAN CORPUSCULAR HGB CONC 33.2 g/dl (32.0-36.5); MEAN CORPUSCULAR VOLUME 84.1 fl (80.0-96.0); MONO # 0.7 10^3/uL (0.0-0.8); MONO % 9.8 % (2.0-8.0); NEUTROPHILS # 5.5 10^3/uL (1.5-8.5); NEUTROPHILS % 78.1 % (36.0-66.0); PLATELET COUNT, AUTOMATED 124 10^3/uL (150-450); RED BLOOD COUNT 6.16 10^6/uL (4.30-6.10); WHITE BLOOD COUNT 7.1 10^3/uL (4.0-10.0)
[2023-09-20 01:07] LABS: ALBUMIN 4.1 G/DL (3.2-5.2); BILIRUBIN,DIRECT 0.3 MG/DL (<0.4); BILIRUBIN,TOTAL 0.8 MG/DL (0.3-1.2); CALCIUM LEVEL 9.6 MG/DL (8.3-10.6); CREATININE FOR GFR 1.33 MG/DL (0.70-1.30); GLOMERULAR FILTRATION RATE 57.4 (>49); POTASSIUM SERUM 4.3 MMOL/L (3.5-5.1); TOTAL PROTEIN 7.7 G/DL (5.7-8.2)
[2023-09-20 01:14] LABS: RSV AMPLIFICATION NEGATIVE (NEGATIVE)
[2023-09-20] MEDS ORDERED: ONDANSETRON 4MG 2ML VIAL IV ONE (01:15)
[2023-09-20] MEDS ORDERED: NS 1,000 ML IV ONE (01:15)
[2023-09-20 02:00] VITALS: BP 118/55; O2SAT 93
[2023-09-20] MEDS ORDERED: ONDA4TAB6 PO (02:16)
== END 2023-09-20 03:05 | disposition home or self-care (01) ==
LOC: EDBD 23:27 → M ED 23:27
DX: U07.1 COVID-19 (principal); I10 Essential (primary) hypertension; E78.5 Hyperlipidemia, unspecified; K21.9 Gastro-esophageal reflux disease without esophagitis; J44.9 Chronic obstructive pulmonary disease, unspecified; K58.9 Irritable bowel syndrome, unspecified; G47.33 Obstructive sleep apnea (adult) (pediatric); Z87.891 Personal history of nicotine dependence; Z79.2 Long term (current) use of antibiotics; Z79.811 Long term (current) use of aromatase inhibitors; Z79.82 Long term (current) use of aspirin; Z79.899 Other long term (current) drug therapy
CPT/HCPCS: 80048; 80076; 83690; 85025; 87507; 87631; 93041; 96361; 96374; 99284; J2405

== ENCOUNTER 2025-08-14 09:07 | Observation (INO) | payer OTHER ==
[~2025-08-14] VITALS: Ht 190.5 cm; Wt 123.0 kg
[~2025-08-14 09:07] MED LIST changes: -AMBI10TA PO; -HEPA500011 SC; +HEPA50002 SC; +ONDA-282 PO; -ROSU10TA6 PO; +ROSU10TA61 PO; +ZOLP-533 PO; -ZOLP5TAB PO; +ZOLP5TAB9 PO
[2025-08-14 10:05] LABS: VENOUS BASE EXCESS -0.2 (-2.0-2.0); VENOUS HCO3 25.4 MMOL/L (23.0-27.0); VENOUS O2 SATURATION 80.6 % (60.0-80.0); VENOUS PARTIAL PRESSURE CO2 44.5 mmHg (38.0-50.0); VENOUS PARTIAL PRESSURE O2 40.7 mmHg (30.0-50.0); VENOUS PH 7.374 UNITS (7.330-7.430); VENOUS STANDARD HCO3 23.8 MMOL/L; VENOUS TOTAL CO2 26.7 MMOL/L (24.0-28.0)
[2025-08-14 10:07] LABS: BASO # 0.1 10^3/uL (0.0-0.2); BASO % 1.1 % (0.0-1.0); EOS # 0.1 10^3/uL (0.0-0.5); EOS % 1.3 % (0.0-3.0); LYMPH # 1.9 10^3/uL (1.5-5.0); LYMPH % 19.7 % (24.0-44.0); MONO # 0.7 10^3/uL (0.0-0.8); MONO % 7.8 % (2.0-8.0); NEUTROPHILS # 6.6 10^3/uL (1.5-8.5); NEUTROPHILS % 69.7 % (36.0-66.0); PLATELET COUNT, AUTOMATED 166 10^3/uL (150-450)
[2025-08-14 10:18] LABS: INR 0.9
[2025-08-14 10:37] LABS: CK-MB VALUE MASS 2.3 NG/ML (<3.6); ETHYL ALCOHOL (ETHANOL) < 0.003 % (0.000-0.010)
[2025-08-14 10:39] LABS: ALT/SGPT 33 U/L (7.0-40); AST/SGOT 26 U/L (<34); CALCIUM LEVEL 9.8 MG/DL (8.3-10.6); CARBON DIOXIDE LEVEL 27 MMOL/L (20-31); CHLORIDE LEVEL 108 MMOL/L (98-107); CPK CREATINE PHOSPHOKINASE 135 U/L (46-171); CREATININE FOR GFR 1.06 MG/DL (0.70-1.30); GLOMERULAR FILTRATION RATE 76.9 (>49); MB/CK RELATIVE INDEX 1.70 (< OR =4); POTASSIUM SERUM 4.0 MMOL/L (3.5-5.1); SODIUM LEVEL 140 MMOL/L (136-145)
[2025-08-14] MEDS ORDERED: ISOVUE-370 76% 100 ML VIAL As Ordered ONE (10:43)
[2025-08-14] MEDS: LABETALOL 100 MG/20 ML VIAL IV SCH (12:12)
[2025-08-14 12:31] LABS: CK-MB VALUE MASS 2.1 NG/ML (<3.6)
[2025-08-14 12:32] LABS: CPK CREATINE PHOSPHOKINASE 109.0 U/L (46-171); MB/CK RELATIVE INDEX 1.92 (< OR =4)
[2025-08-14] MEDS ORDERED: IBUP200C28 PO (13:16)
[2025-08-14] MEDS ORDERED: ROLA1CHW2 PO (13:16)
[2025-08-14] MEDS ORDERED: HOME MED LIST COMPLETE! XX SCH (13:20)
[2025-08-14] MEDS: ACETAMINOPHEN *IV* 1,000 MG in IV 1 EA IV ONE (13:32)
[2025-08-14] MEDS ORDERED: MAALOX 30 ML SUSP *UDC PO PRN (17:00)
[2025-08-14] MEDS: PANTOPRAZOLE 40MG TAB PO SCH (18:01)
[2025-08-14] MEDS: LOSARTAN 50 MG TABLET PO SCH (18:01)
[2025-08-14 18:09] LABS: APPEARANCE, URINE CLEAR (CLEAR); BACTERIA, URINE AUTO NEGATIVE (NEGATIVE); BILIRUBIN, URINE AUTO NEGATIVE (NEGATIVE); BLOOD, URINE BLOOD NEGATIVE (NEGATIVE); GLUCOSE, URINE (UA) AUTO NEGATIVE (NEGATIVE); KETONE, URINE AUTO NEGATIVE (NEGATIVE); LEUKOCYTE ESTERASE, URINE AUTO TRACE (NEGATIVE); NITRITE, URINE AUTO NEGATIVE (NEGATIVE); PROTEIN, URINE AUTO NEGATIVE (NEGATIVE); RBC, URINE AUTO 1 /HPF (0-3); SPECIFIC GRAVITY URINE AUTO 1.036 (1.002-1.035); SQUAMOUS EPITHELIAL CELL UR AU 0 /HPF (0-6); TRANSITIONAL EPITHELIAL AUTO <1 /HPF; UROBILINOGEN, URINE AUTO 0.2 mg/dL (0.0-2.0); WBC, URINE AUTO 4 /HPF (0-3)
[2025-08-14 19:29] LABS: CREATININE, URINE 169.6 MG/DL; MALB URINE SIEMENS 13.0 MG/L; MAU/CREAT RATIO 7.6 MCG/MG (0.0-30.0)
[2025-08-14] MEDS: SIMETHICONE 80MG CHEW TAB PO SCH (21:49)
[2025-08-15] VITALS (18 sets, daily range): BP systolic 148–220; BP diastolic 80–122; TEMP 97.1–98.4; O2SAT 92–97
[2025-08-15 06:26] LABS: PLATELET COUNT, AUTOMATED 136 10^3/uL (150-450)
[2025-08-15 06:39] LABS: ESTIMATED AVERAGE GLUCOSE 108.0 MG/DL (60-110)
[2025-08-15 06:49] LABS: CALCIUM LEVEL 9.9 MG/DL (8.3-10.6); CARBON DIOXIDE LEVEL 27.0 MMOL/L (20-31); CHLORIDE LEVEL 108.0 MMOL/L (98-107); CHOLESTEROL LEVEL 192.0 MG/DL (<200); CHOLESTEROL RISK RATIO 5.05 (<5); CREATININE FOR GFR 1.03 MG/DL (0.70-1.30); GLOMERULAR FILTRATION RATE 79.6 (>49); LDL CHOLESTEROL 113.8 MG/DL (<100); MAGNESIUM LEVEL 2.3 MG/DL (1.8-2.4); NON-HDL-C 154.0 MG/DL; POTASSIUM SERUM 4.2 MMOL/L (3.5-5.1); SODIUM LEVEL 141.0 MMOL/L (136-145); TRIGLYCERIDES LEVEL 201.0 MG/DL (<150)
[2025-08-15] MEDS: LOSARTAN 25 MG TAB PO SCH (08:28)
[2025-08-15] MEDS ORDERED: LOSARTAN 50 MG TABLET PO SCH (09:00)
[2025-08-15] MEDS: hydrALAZINE 20 MG/ML 1 ML VIAL IV PRN (12:01)
[2025-08-15] MEDS: LOSARTAN 25 MG TAB PO ONE (12:14)
[2025-08-15] MEDS: **hydrALAZINE** 50 MG TAB PO SCH (12:14)
[2025-08-15] MEDS: ATORVASTATIN 20 MG TAB PO SCH (21:28)
[2025-08-16] VITALS (10 sets, daily range): BP systolic 140–168; BP diastolic 78–92; TEMP 97.8–98.6; O2SAT 93–98
[2025-08-16] MEDS: ACETAMINOPHEN 325 MG TAB PO PRN (00:19)
[2025-08-16 06:28] LABS: CALCIUM LEVEL 10.0 MG/DL (8.3-10.6); CARBON DIOXIDE LEVEL 26.0 MMOL/L (20-31); CHLORIDE LEVEL 108.0 MMOL/L (98-107); CREATININE FOR GFR 1.01 MG/DL (0.70-1.30); GLOMERULAR FILTRATION RATE 81.5 (>49); POTASSIUM SERUM 3.9 MMOL/L (3.5-5.1); SODIUM LEVEL 142.0 MMOL/L (136-145)
[2025-08-16] MEDS: LOSARTAN 50 MG TABLET PO SCH (09:01)
[2025-08-16] MEDS ORDERED: HYDR50TA46 PO (11:25)
[2025-08-16] MEDS ORDERED: LOSA100T46 PO (11:25)
[2025-08-16] MEDS ORDERED: ATOR40TA75 PO (11:25)
[2025-08-16] MEDS ORDERED: SIME80CH6 PO (11:25)
[2025-08-16] MEDS ORDERED: BLOOMIS12 XX (11:25)
== END 2025-08-16 14:06 | disposition home or self-care (01) ==
LOC: M ED 09:07 → M ED INP 09:08 → M PCU 08-15 05:00
PROVIDERS: ADMIT Student in an Organized Health Care Education/Training Program; ATTEND Student in an Organized Health Care Education/Training Program
DX: I16.0 Hypertensive urgency (principal); E78.5 Hyperlipidemia, unspecified; R55 Syncope and collapse; K58.0 Irritable bowel syndrome with diarrhea; K21.9 Gastro-esophageal reflux disease without esophagitis; K29.70 Gastritis, unspecified, without bleeding; G47.33 Obstructive sleep apnea (adult) (pediatric); F17.210 Nicotine dependence, cigarettes, uncomplicated; Z79.899 Other long term (current) drug therapy
CPT/HCPCS: 36415; 70450; 71045; 71275; 74177; 76775; 80047; 80048; 80061; 80076; 81001; 82043; 82077; 82550; 82553; 82803; 83036; 83605; 83735; 83880; 84145; 84443; 84484; 85025; 85027; 85610; 87040; 87486; 87581; 87633; 87798; 93005; 93041; 93306; 93975; 94760; 96374; 99285; G0378; J0360; J1920; Q9967